=== PATIENT | female | born 1980 ===

== ENCOUNTER 2018-02-02 14:59 | Emergency (ER) | payer SELFPAY ==
[2018-02-02 15:00] VITALS: BMI 34.7
[2018-02-02 15:22] VITALS: O2SAT 99
[2018-02-02] MEDS ORDERED: Lactated Ringer's 1,000 ML IV STA (15:36)
--- NOTE | 2018-02-02 15:59 | ED PDOC ---
HPI: Female Pain Time Seen by Provider: 02/02/18 15:26 Chief Complaint (Nursing): Female Genitourinary Chief Complaint (Provider): Vaginal Bleeding History Per: Patient History/Exam Limitations: no limitations Onset/Duration Of Symptoms: Sudden Onset Current Symptoms Are (Timing): Better Quality Of Discomfort: "Pain" Additional Complaint(s): 37 year old female presents to the ED for an evaluation vaginal bleeding onset today morning. She reports of an episode of large amount blood spotting and blood upon urination that stopped prior to arrival. Patient is concerned because she is and she has not initiated any care. Her last normal menstrual period was on November 21. She reports her first was miscarried and she had 6 normal vaginal deliveries in the past. Otherwise patient denies fever, cough, shortness of breath, chest pain, rash or any other complaints. : 8 Para:6 PMD: No family provider Abnormal Vaginal Bleeding: Yes Last Menstral Period: 11/21/17 : 8 Para: 6 Miscarriage: 1 Past Medical History Reviewed: Historical Data, Nursing Documentation, Vital Signs Vital Signs: Last Vital Signs Temp 98.1 F 02/02/18 15:19 Pulse 88 02/02/18 15:19 Resp 17 02/02/18 15:19 BP 144/73 02/02/18 15:34 Pulse Ox 99 02/02/18 15:19 - Medical History PMH: No Chronic Diseases - Surgical History Surgical History: No Surg Hx - Family History Family History: States: Hypertension - Social History Current smoker - smoking cessation education provided: No Alcohol: None Drugs: Denies - Home Medications Home Medications: Ambulatory Orders Medication Instructions Recorded 21/Iron Fu/Folic Acid 1 each PO DAILY #1 packet 02/02/18 [ Complete Caplet] - Allergies Allergies/Adverse Reactions: Allergies Allergy/AdvReac Type Severity Reaction Status Date / Time No Known Allergies Allergy Verified 09/22/14 21:14 Review of Systems ROS Statement: Except As Marked, All Systems Reviewed And Found Negative (As per HPI, otherwise negative) Constitutional: Negative for: Fever Cardiovascular: Negative for: Chest Pain Respiratory: Negative for: Cough, Shortness of Breath Genitourinary Female: Positive for: Hematuria, Vaginal Bleeding. Negative for: Dysuria, Frequency, Incontinence Skin: Negative for: Rash Psych: Negative for: Suicidal ideation (homicidal ideation) Physical Exam - Physical Exam Appears: Positive for: No Acute Distress Head Exam: Positive for: ATRAUMATIC, NORMOCEPHALIC Skin: Positive for: Warm, Dry Eye Exam: Positive for: EOMI, PERRL ENT: Negative for: Pharyngeal Erythema, Tonsillar Exudate Neck: Positive for: Painless ROM, Supple Cardiovascular/Chest: Positive for: Regular Rate, Rhythm. Negative for: Edema Respiratory: Positive for: Normal Breath Sounds. Negative for: Respiratory Distress Gastrointestinal/Abdominal: Positive for: Tenderness (mild suprapubic tenderness to deep palpation ). Negative for: Mass, Guarding, Rebound Pelvic Exam: Positive for: External Exam Normal, No Cerv. Motion Tender, Discharge (scant brown discharge near cervix). Negative for: Active Bleeding, Tender Adnexa, Tender Uterus Extremity: Positive for: Normal ROM. Negative for: Deformity Lymphatic: Negative for: Adenopathy Neurologic/Psych: Positive for: Alert. Negative for: Motor/Sensory Deficits - Laboratory Results Result Diagrams: 02/02/18 16:10 - ECG O2 Sat by Pulse Oximetry: 99 (RA) Pulse Ox Interpretation: Normal Medical Decision Making Medical Decision Making: Time: 1536 Initial Impression: vaginal bleeding, 1st trimester Differential Diagnosis: threatened , incomplete miscarriage, ectopic Initial Plan: BBK Type and Screen BETA-HCG, Quantitative ED Urine ED Urine dipstick CBC w/ dipstick Chlamydia/GC RNA,TMA Lactated Ringers 1,000 ml IV Insertion OB Transvaginal Reevaluation Accession No. : [id number] Patient Name / ID : KRISTI SILVA / [id number] Exam Date : 02/02/2018 18:00:45 ( Approved ) Study Comment : Sex / Age : F / 37Y Creator : Avani Orantes MD Dictator : Avani Orantes MD Billiard Table Repairer : Sorority Mother : Avani Orantes MD Approver2 : Report Date : 02/02/2018 18:48:32 My Comment : Date of service: 02/02/2018 PROCEDURE: OB Pelvic Ultrasound HISTORY: preg vag bleed COMPARISON: None available. FINDINGS: UTERUS: Single Live intrauterine gestation. CRL measures 3.66 cm equivalent to 10 weeks and 4 days of gestational age. Gestational sac diameter measures 5.05 cm equivalent to 10 weeks and 6 days of gestational age. age (Ultrasound estimated): 10 weeks and 5 days Date of delivery (Ultrasound estimated) : 08/26/2018 Heart rate: 183 bpm. [place]-gestational hemorrhage: There is 2.5 x 1.3 x 3.3 cm posterior subchorionic hemorrhage. Uterus measures 12.8 x 8.7 x 2.6 cm. No mass CERVIX: Long and closed. There are nabothian cysts in the cervix. RIGHT OVARY: Measures cm. No mass. Normal flow. LEFT OVARY: Measures cm. No mass. Normal flow. FREE FLUID: None. OTHER FINDINGS: None. IMPRESSION: Single live intrauterine gestation with mean gestational age of 10 weeks and 5 days. The estimated date of delivery is 08/26/2018. The ultrasound dates correspond with the clinical dates. 2.5 x 1.3 x 3.3 cm posterior subchorionic hemorrhage. Clinical follow-up is advised. DW pt findings. Advised that bleeding in first trimester may be start of miscarriage, but at this time no other treatment except for watchful waiting and followup with [facility]. Stable for discharge. Scribe Attestation: Documented by Tamica Paul, acting as a scribe for Marysol Sherwood MD Provider Scribe Attestation: All medical record entries made by the Scribe were at my direction and personally dictated by me. I have reviewed the chart and agree that the record accurately reflects my personal performance of the history, physical exam, medical decision making, and the department course for this patient. I have also personally directed, reviewed, and agree with the discharge instructions and disposition. Disposition - Clinical Impression Clinical Impression: Vaginal bleeding during Counseled Patient/Family Regarding: Studies Performed, Diagnosis, Need For Followup, Rx Given - Disposition [facility] ([facility] 1-2 [facility] [place] Disposition: Routine/Home Disposition Time: 18:59 Condition: STABLE Prescriptions: 21/Iron Fu/Folic Acid [ Complete Caplet] 1 each PO DAILY #1 packet Instructions: Bleeding With (DC) Print Language: GIBRALTAR[place]
[2018-02-02 16:24] LABS: BASO # 0.1 K/uL (0.0-0.2); BASO % 1.1 % (0.0-2.0); EOS # 0.2 K/uL (0.0-0.7); EOS % 2.5 % (0.0-4.0); HEMOGLOBIN 12.3 g/dL (12.0-16.0); LYMPH % 22.3 % (20.0-40.0); MEAN CELL VOLUME 85.2 fl (81.0-99.0); MEAN CORPUSCULAR HEMOGLOBIN 28.4 pg (27.0-31.0); MEAN CORPUSCULAR HGB CONC 33.3 g/dL (33.0-37.0); MEAN PLATELET VOLUME 7.8 fl (7.2-11.7); MONO # 0.6 K/uL (0.0-0.8); MONO % 6.6 % (0.0-10.0); NEUT # 6.1 K/uL (1.8-7.0); NEUT % 67.5 % (50.0-75.0); RBC 4.33 Mil/uL (3.80-5.20); RED CELL DISTRIBUTION WIDTH 13.4 % (11.5-14.5); WHITE BLOOD COUNT 9.1 K/uL (4.8-10.8)
[2018-02-02 16:27] LABS: SQUAMOUS EPITHIAL 14 /hpf (0-5); URINE BACTERIA RARE (<OCC); URINE BILIRUBIN NEGATIVE (NEGATIVE); URINE CLARITY CLOUDY (Clear); URINE COLOR YELLOW (YELLOW); URINE GLUCOSE (UA) NEG (NEGATIVE); URINE LEUKOCYTE ESTERASE TRACE Leu/uL (Negative); URINE PROTEIN NEGATIVE (NEGATIVE); URINE UROBILINOGEN 0.2-1.0 mg/dL (0.2-1.0)
[2018-02-02 16:31] LABS: URINE BLOOD SMALL (NEGATIVE)
--- NOTE | 2018-02-02 18:52 | US ---
Date of service: 02/02/2018 PROCEDURE: OB Pelvic Ultrasound HISTORY: preg vag bleed COMPARISON: None available. FINDINGS: UTERUS: Single Live intrauterine gestation. CRL measures 3.66 cm equivalent to 10 weeks and 4 days of gestational age. Gestational sac diameter measures 5.05 cm equivalent to 10 weeks and 6 days of gestational age. age (Ultrasound estimated): 10 weeks and 5 days Date of delivery (Ultrasound estimated) : 08/26/2018 Heart rate: 183 bpm. [place]-gestational hemorrhage: There is 2.5 x 1.3 x 3.3 cm posterior subchorionic hemorrhage. Uterus measures 12.8 x 8.7 x 2.6 cm. No mass CERVIX: Long and closed. There are nabothian cysts in the cervix. RIGHT OVARY: Measures cm. No mass. Normal flow. LEFT OVARY: Measures cm. No mass. Normal flow. FREE FLUID: None. OTHER FINDINGS: None. IMPRESSION: Single live intrauterine gestation with mean gestational age of 10 weeks and 5 days. The estimated date of delivery is 08/26/2018. The ultrasound dates correspond with the clinical dates. 2.5 x 1.3 x 3.3 cm posterior subchorionic hemorrhage. Clinical follow-up is advised.
[2018-02-02 19:14] VITALS: BP 140/81; PULSE 69; RESP 18; TEMP 98
== END 2018-02-02 19:14 | disposition home or self-care (01) ==
LOC: H.ER 14:59
DX: O20.9 Hemorrhage in early pregnancy, unspecified (principal); Z3A.10 10 weeks gestation of pregnancy
CPT/HCPCS: 76817; 81003; 81025; 84702; 85025; 86850; 86900; 87086; 87491; 87591; 96360; 99284; J7120